=== PATIENT | male | born 1980 | race Caucasian/White ===

== ENCOUNTER 2017-05-08 23:41 | Emergency (ER) | payer BC ==
[2017-05-09 00:10] LABS: Bilirubin Negative (Negative); Blood, Urine Large (Negative); Glucose, Urine (Dipstick) Negative (Negative); Ketone, Urine Negative (Negative); Nitrite Negative (Negative); Protein, Urine (Dipstick) Negative (Neg-Trace); Urobilinogen 0.2 mg/dL (0.2-1.0)
[2017-05-09 00:13] LABS: Bacteria/HPF None Seen HPF (None Seen); Hyaline Casts/LPF 0-3 HYALINE CAST LPF (0-3 Hyaline); RBC/HPF GREATER THAN 50-TNTC HPF (0-3); Squamous Epithelial None Seen HPF (0-3); WBC/HPF 0-3 HPF (0-3)
[2017-05-09 00:36] LABS: #Basophils 0.1 thou/uL (0.0-0.2); #Eosinphils 0.2 thou/uL (0.0-0.7); #Lymphocytes 2.9 thou/uL (1.20-3.40); #Monocytes 0.9 thou/uL (0.11-0.59); #Neutrophils 5.1 thou/uL (1.40-6.50); %Basophils 0.8 % (0.0-1.0); %Lymphocytes 31.5 % (21.0-51.0); %Monocytes 10.1 % (0.0-10.0); Hematocrit 42.6 % (42.0-52.0); Mean Platelet Volume 6.2 fL (7.4-10.4); Red Blood Cell (RBC) Count 4.45 mill/uL (4.70-6.10); White Blood Cell (WBC) Count 9.2 thou/uL (4.8-10.8)
[2017-05-09 00:59] LABS: ALT (SGPT) 16 U/L (8-55); AST (SGOT) 16 U/L (5-34); Alkaline Phosphatase 57 U/L (40-150); Anion Gap 11 mmol/L (10-20); BUN (Urea Nitrogen) 18 mg/dL (8.9-20.6); Bilirubin, Total 0.2 mg/dL (0.2-1.2); Calc. Creatinine Clearance 0 mL/min (70-130); Calcium 9.6 mg/dL (7.8-10.44); Carbon Dioxide 30 mmol/L (22-29); Chloride 103 mmol/L (98-107); Estimated GFR-MDRD 87; Globulin 3.8 g/dL (2.4-3.5); Protein, Total 7.7 g/dL (6.0-8.3)
--- NOTE | 2017-05-09 08:12 | CT ---
PRELIMINARY REPORT/[facility]/EMERGENCY AFTER HOURS PROCEDURE: EXAM: CT Abdomen and Pelvis Without Intravenous Contrast CLINICAL HISTORY: 36 years old, male; Pain; Abdominal pain; Localized; Left lower quadrant (llq); Patient HX: Intermitt ent l back pain with pain in llq - HX of kidney stone - also C/O l groin pain. TECHNIQUE: Axial computed tomography images of the abdomen and pelvis without intravenous contrast. Coronal reformatted images were created and reviewed. COMPARISON: No relevant prior studies available. FINDINGS: Lower thorax: No acute findings. ABDOMEN: Liver: Nonspecific 1.4 cm noncystic low attenuation lesion peripherally in the right hepatic lobe. Gallbladder and bile ducts: Unremarkable. Pancreas: Normal. Spleen: Normal. Adrenals: Normal. Kidneys and ureters: Punctate and 2 mm nonobstructive left renal stones. No other urolithiasis. No hy droureteronephrosis. Stomach and bowel: Unremarkable. No obstruction. Appendix: No findings to suggest acute appendicitis. PELVIS: Bladder: Unremarkable. Reproductive: Unremarkable. ABDOMEN and PELVIS: Intraperitoneal space: No free air. No significant fluid collection. Bones/joints: Unremarkable. No acute fracture. Soft tissues: Unremarkable. Vasculature: Unremarkable. Lymph nodes: Unremarkable. No enlarged lymph nodes. IMPRESSION: No acute findings. Nonobstructive left nephrolithiasis. Thank you for allowing us to participate in the care of your patient. Dictated and Authenticated by: Simone Wiggins MD 05/09/2017 12:50 AM Central Time ([place] & [place]) FINAL REPORT EMERGENT AFTER HOURS CT ABDOMEN AND ARMIDA WITHOUT IV CONTRAST: DATE: 05/09/17. HISTORY: Intermittent left-sided back pain and left lower quadrant abdominal pain. History of kidney stones. The patient also complains of left groin pain. COMPARISON: 10/04/13. IMPRESSION: 1. Nonobstructing 2 mm left renal calculus. 2. No ureteral calculus is seen bilaterally, and there is no right renal calculus. There is no hydr onephrosis seen. 3. Nonspecific approximately 1.4 cm hypodense lesion in the peripheral aspect of the right hepatic l obe. This is difficult to further characterize on this nonenhanced CT scan exam. 4. No CT evidence of appendicitis. 5. Findings are in agreement with the preliminary report by [facility]. POS: [facility]
== END 2017-05-09 01:11 | disposition home or self-care (01) ==
LOC: ERS 23:41
DX: N23 Unspecified renal colic (principal); F17.210 Nicotine dependence, cigarettes, uncomplicated
CPT/HCPCS: 36415; 74176; 80053; 81003; 81015; 85025; 99406

== ENCOUNTER 2017-05-17 19:23 | Emergency (ER) | payer BC ==
[2017-05-17] MEDS ORDERED: Ondansetron HCl/PF 4 MG/2 ML Vial ONE (19:49)
[2017-05-17] MEDS ORDERED: Morphine 4 MG/ML VIAL ONE (19:49)
[2017-05-17 19:57] LABS: #Basophils 0.1 thou/uL (0.0-0.2); #Eosinphils 0.1 thou/uL (0.0-0.7); #Lymphocytes 1.9 thou/uL (1.20-3.40); #Monocytes 0.9 thou/uL (0.11-0.59); #Neutrophils 7.2 thou/uL (1.40-6.50); %Basophils 0.5 % (0.0-1.0); %Eosinophils 1.1 % (0.0-10.0); %Lymphocytes 18.7 % (21.0-51.0); %Monocytes 8.6 % (0.0-10.0); Hematocrit 40.9 % (42.0-52.0); Mean Platelet Volume 6.1 fL (7.4-10.4); White Blood Cell (WBC) Count 10.2 thou/uL (4.8-10.8)
[2017-05-17 20:14] LABS: Anion Gap 10 mmol/L (10-20); BUN (Urea Nitrogen) 18 mg/dL (8.9-20.6); Calc. Creatinine Clearance 0 mL/min (70-130); Calcium 9.5 mg/dL (7.8-10.44); Carbon Dioxide 31 mmol/L (22-29); Chloride 102 mmol/L (98-107); Estimated GFR-MDRD 72
[2017-05-17 20:25] LABS: Bilirubin Negative (Negative); Blood, Urine Large (Negative); Glucose, Urine (Dipstick) Negative (Negative); Ketone, Urine Negative (Negative); Nitrite Negative (Negative); Protein, Urine (Dipstick) 30 mg/dL (Neg-Trace); Urobilinogen 0.2 mg/dL (0.2-1.0)
[2017-05-17 20:32] LABS: Bacteria/HPF None Seen HPF (None Seen); Hyaline Casts/LPF 0-3 HYALINE CAST LPF (0-3 Hyaline); RBC/HPF GREATER THAN 50-TNTC HPF (0-3); Squamous Epithelial 0-3 HPF (0-3)
[2017-05-17] MEDS ORDERED: Ketorolac Tromethamine 30 MG/ML VIAL ONE (21:06)
--- NOTE | 2017-05-17 23:14 | CT ---
CT ABDOMEN AND PELVIS WITHOUT CONTRAST STONE PROTOCOL 05/17/17 HISTORY: Renal stones. COMPARISON: CT stone protocol 05/09/17. FINDINGS: The lung bases appear clear. No pericardial effusion. The previously noted nonobstructive left sided renal calculus is now within the distal left ureter 2 cm proximal to the ureterovesicular junction causing mild hydroureteronephrosis. There are also a pun ctate calculus superior pole left kidney. No right sided hydroureteronephrosis or nephroureterolithia sis. The appendix is visualized and is normal. No dilated loops of large or small bowel. Peripheral right hepatic hypodensity is similar. IMPRESSION: 1. Partially obstructive distal left ureteral calculus 2 cm proximal to the ureterovesicular mary carmen ction measuring 2 mm. This causes mild left sided hydroureteronephrosis and perinephric stranding. 2. Punctate calculus superior pole left kidney. 3. No right sided hydroureteronephrosis or nephroureterolithiasis. POS: [facility]
== END 2017-05-17 23:31 | disposition home or self-care (01) ==
LOC: ERS 19:23
DX: N13.2 Hydronephrosis with renal and ureteral calculous obstruction (principal); F17.210 Nicotine dependence, cigarettes, uncomplicated
CPT/HCPCS: 36415; 74176; 80048; 81003; 81015; 85025; 96361; 96374; 96375; 99406; J1885; J2270; J2405

== ENCOUNTER 2017-05-21 11:18 | Emergency (ER) | payer BC ==
[2017-05-21 12:03] LABS: Bilirubin Negative (Negative); Blood, Urine Moderate (Negative); Glucose, Urine (Dipstick) Negative (Negative); Ketone, Urine Negative (Negative); Nitrite Negative (Negative); Protein, Urine (Dipstick) Negative (Neg-Trace); Urobilinogen 0.2 mg/dL (0.2-1.0)
[2017-05-21 12:05] LABS: Bacteria/HPF Rare-Few HPF (None Seen); Hyaline Casts/LPF 0-3 HYALINE CAST LPF (0-3 Hyaline); RBC/HPF 21-50 HPF (0-3); Squamous Epithelial None Seen HPF (0-3); WBC/HPF 0-3 HPF (0-3)
[2017-05-21 12:13] LABS: #Eosinphils 0.1 thou/uL (0.0-0.7); #Lymphocytes 2.1 thou/uL (1.20-3.40); #Monocytes 0.8 thou/uL (0.11-0.59); #Neutrophils 5.2 thou/uL (1.40-6.50); %Basophils 0.5 % (0.0-1.0); %Eosinophils 1.7 % (0.0-10.0); %Lymphocytes 25.2 % (21.0-51.0); %Monocytes 9.7 % (0.0-10.0); Hematocrit 38.9 % (42.0-52.0); Red Blood Cell (RBC) Count 4.07 mill/uL (4.70-6.10); White Blood Cell (WBC) Count 8.3 thou/uL (4.8-10.8)
[2017-05-21] MEDS ORDERED: Ketorolac Tromethamine 30 MG/ML VIAL ONE (12:23)
[2017-05-21 12:34] LABS: ALT (SGPT) 15 U/L (8-55); AST (SGOT) 17 U/L (5-34); Alkaline Phosphatase 54 U/L (40-150); Anion Gap 8 mmol/L (10-20); BUN (Urea Nitrogen) 16 mg/dL (8.9-20.6); Bilirubin, Total 0.4 mg/dL (0.2-1.2); Calc. Creatinine Clearance 0 mL/min (70-130); Calcium 9.4 mg/dL (7.8-10.44); Carbon Dioxide 32 mmol/L (22-29); Chloride 101 mmol/L (98-107); Estimated GFR-MDRD 75; Globulin 3.6 g/dL (2.4-3.5); Protein, Total 7.5 g/dL (6.0-8.3)
[2017-05-21] MEDS ORDERED: Tamsulosin HCl 0.4 MG CAP PO ONE (13:15)
--- NOTE | 2017-05-21 14:37 | ULT ---
ULTRASOUND RETROPERITONEUM COMPLETE: (RENAL) DATE: 05/21/17. HISTORY: A 36-year-old male with left obstructive uropathy due to left ureteral calculus. Increasing left fla nk pain recently. FINDINGS: The right kidney measures 11.5 x 6 x 6.5 cm. The left kidney measures 11.5 x 6.5 x 7.5 cm. There is no right-sided hydronephrosis. There is mild to moderate dilation of left calyces. Within the urin kiara bladder, a strong right ureteral jet is visualized, but there is a weak contralateral left ureter al jet. IMPRESSION: Left (partial) obstructive uropathy, with mild to moderate left hydronephrosis. LORRAINE Bernard POS: [facility]
== END 2017-05-21 14:25 | disposition home or self-care (01) ==
LOC: ERS 11:18
DX: N13.2 Hydronephrosis with renal and ureteral calculous obstruction (principal); F17.210 Nicotine dependence, cigarettes, uncomplicated
CPT/HCPCS: 36415; 76770; 80053; 81003; 81015; 85025; 96361; 96374; J1885